=== PATIENT | male | born 1985 | race African-American/Black ===

== ENCOUNTER 2018-03-31 12:13 | Inpatient (IN) ==
[2018-03-31] MEDS ORDERED: KETOROLAC 30 MG/1 ML VIAL IV STA (14:43)
[2018-03-31] MEDS ORDERED: SODIUM CHLORIDE 0.9% 1,000 ML IV STA ×2 (14:43→16:33)
[2018-03-31 15:05] LABS: Basophils # 0.1 10*3/uL (0.0-0.2); Basophils % 0.3 % (0.0-0.8); Eosinophils # 0.1 10*3/uL (0.0-0.87); Eosinophils % 0.3 % (0.00-10.9); Hematocrit 37.1 VOL% (42.0-52.0); Hemoglobin 12.3 GM/DL (14.0-18.0); Immature Granulocytes % 0.7 %; Immature Granulocytes Absolute 0.17 #; Lymphocytes # 1.8 10*3/uL (1.4-4.0); Lymphocytes % 7.9 % (21.2-54.2); Mean Corpuscular HGB Conc 33.2 GM/DL (32-36); Mean Corpuscular Hemoglobin 33 PG (27-34); Mean Corpuscular Volume 99.7 FL (87-102); Mean Platelet Volume 9.3 FL (9.6-12.0); Monocytes # 1.5 10*3/uL (0.11-0.8); Monocytes % 6.6 % (1.7-12.7); Neutrophils # 19.4 10*3/uL (1.4-7.4); Neutrophils % 84.2 % (38.7-73.9); Platelet Count 485 T/CUMM (130-400); Red Blood Count 3.72 MC/CUMM (3.8-5.5); Red Cell Distribution Width 11.9 % (9.3-17.3); White Blood Count 23.1 T/CUMM (4-12)
[2018-03-31] MEDS ORDERED: cefTRIAXone 1,000 MG in SODIUM CHLORIDE 0.9% 100 ML IV STA (15:17)
[2018-03-31 15:22] LABS: Osmolality,Calculated 264.2 MOS/KG (273-304); Potassium 3.7 MMOL/L (3.5-5.1)
[2018-03-31] MEDS ORDERED: ONDANSETRON 4 MG/2 ML VIAL IV STA (15:25)
[2018-03-31] MEDS ORDERED: HYDROmorphone 2 MG/1 ML VIAL IV STA (15:25)
[2018-03-31 15:46] LABS: Band Neutrophils 2 % (0-10); Hypochromasia 1+; Lymphocytes 14 % (20-55); Polychromasia Slight; Segmented Neutrophils 76 % (50-85); Total Cells Counted 100
[2018-03-31 15:47] LABS: Platelet Estimate Adequate; Stomatocytes Few; Target Cells Slight
[2018-03-31] MEDS ORDERED: ACETAMINOPHEN 325 MG TABLET PO PRN (15:50)
[2018-03-31] MEDS ORDERED: ONDANSETRON 4 MG/2 ML VIAL IV PRN (15:50)
[2018-03-31] MEDS ORDERED: PROMETHAZINE 25 MG/1 ML VIAL IM PRN (15:50)
[2018-03-31] MEDS ORDERED: LEVOFLOXACIN INJ 750 MG in PREMIX 1 EACH IV STA (16:09)
[2018-03-31] MEDS ORDERED: HYDROmorphone 2 MG/1 ML VIAL IV PRN (16:10)
[2018-03-31] MEDS ORDERED: SODIUM CHLORIDE 0.9% 1,500 ML IV STA (16:35)
[2018-03-31] MEDS ORDERED: LEVOFLOXACIN INJ 750 MG in PREMIX 1 EACH IV SCH (17:00)
[2018-03-31 17:01] LABS: Apearance,Urine CLOUDY (Clear); Bilirubin,Urine Negative (Negative); Blood, Urine Small mg/dL (Negative); Glucose,Urine (UA) Negative (Negative); Ketones,Urine 80 mg/dL (Negative); Mucus,Urine Occasional /LPF (Occasional); Nitrite,Urine Negative (Negative); Protein,Urine 30 MG/DL; RBC,Urine 8 /HPF (0-4); Urine Color Amber (Yellow); Urine Specific Gravity 1.017 (1.001-1.035); WBC,Urine 1581 /HPF (0-6)
[2018-03-31] MEDS ORDERED: INFLUENZA VIRUS VACCINE 0.5 ML SYRINGE IM ONE (18:17)
[2018-03-31] MEDS: cefTRIAXone 1,000 MG in SYRINGE 1 EACH IV SCH (18:24)
[2018-03-31] MEDS: ENOXAPARIN 40 MG/0.4 ML SYRINGE SUBCUT SCH (18:36)
[2018-03-31] MEDS: PANTOPRAZOLE 40 MG TABLET PO SCH (18:36)
[2018-03-31] MEDS: SODIUM CHLORIDE 0.9% 1,000 ML IV SCH (18:37)
[2018-03-31 19:09] LABS: Barbiturates Screen,Urine Negative (Negative); Benzodiazepines Screen,Urine Negative (Negative); Cannabinoid Screen,Urine Positive (Negative); Opiate Screen,Urine Negative (Negative); Phencyclidine Screen,Urine Negative (Negative)
[2018-04-01] MEDS: SODIUM CHLORIDE 0.9% 1,000 ML IV SCH ×2 (02:06→09:53)
[2018-04-01 06:19] LABS: Basophils % 0.2 % (0.0-0.8); Eosinophils # 0.2 10*3/uL (0.0-0.87); Eosinophils % 0.8 % (0.00-10.9); Hematocrit 29.9 VOL% (42.0-52.0); Hemoglobin 9.9 GM/DL (14.0-18.0); Immature Granulocytes % 0.8 %; Immature Granulocytes Absolute 0.14 #; Lymphocytes # 2.3 10*3/uL (1.4-4.0); Lymphocytes % 13.2 % (21.2-54.2); Mean Corpuscular HGB Conc 33.1 GM/DL (32-36); Mean Corpuscular Hemoglobin 34 PG (27-34); Mean Corpuscular Volume 101.4 FL (87-102); Mean Platelet Volume 9.4 FL (9.6-12.0); Monocytes # 1.6 10*3/uL (0.11-0.8); Monocytes % 9.1 % (1.7-12.7); Neutrophils # 13.4 10*3/uL (1.4-7.4); Neutrophils % 75.9 % (38.7-73.9); Platelet Count 422 T/CUMM (130-400); Red Blood Count 2.95 MC/CUMM (3.8-5.5); White Blood Count 17.7 T/CUMM (4-12)
[2018-04-01 06:54] LABS: Bilirubin,Total 0.6 MG/DL (0.2-1.0); Osmolality,Calculated 273.7 MOS/KG (273-304); Total Protein 6.2 G/DL (6.4-8.3)
[2018-04-01 09:13] LABS: Folate 6.9 NG/ML (5.4-24.0)
[2018-04-01] MEDS: PANTOPRAZOLE 40 MG TABLET PO SCH (09:47)
[2018-04-01] MEDS: LEVOFLOXACIN INJ 750 MG in PREMIX 1 EACH IV SCH (16:04)
[2018-04-01] MEDS ORDERED: CYANOCOBALAMIN 1000 MCG/1 ML VIAL IM ONE (16:30)
[2018-04-01] MEDS: cefTRIAXone 1,000 MG in SYRINGE 1 EACH IV SCH (17:59)
[2018-04-01] MEDS: ENOXAPARIN 40 MG/0.4 ML SYRINGE SUBCUT SCH (18:00)
[2018-04-01] MEDS: MULTIVITAMIN (CENTRUM) TABLET PO SCH (18:03)
[2018-04-01] MEDS ORDERED: FOLIC ACID 1 MG TABLET PO SCH (21:00)
[2018-04-01] MEDS ORDERED: SERTRALINE 25 MG TABLET PO SCH (21:00)
[2018-04-02 06:53] LABS: Basophils % 0.2 % (0.0-0.8); Eosinophils # 0.2 10*3/uL (0.0-0.87); Eosinophils % 1.6 % (0.00-10.9); Hematocrit 29.6 VOL% (42.0-52.0); Hemoglobin 9.7 GM/DL (14.0-18.0); Immature Granulocytes % 0.8 %; Immature Granulocytes Absolute 0.11 #; Lymphocytes # 2.2 10*3/uL (1.4-4.0); Lymphocytes % 16.7 % (21.2-54.2); Mean Corpuscular HGB Conc 32.8 GM/DL (32-36); Mean Corpuscular Hemoglobin 33 PG (27-34); Mean Corpuscular Volume 100.3 FL (87-102); Mean Platelet Volume 9.7 FL (9.6-12.0); Monocytes # 1.2 10*3/uL (0.11-0.8); Monocytes % 9.3 % (1.7-12.7); Neutrophils # 9.3 10*3/uL (1.4-7.4); Neutrophils % 71.4 % (38.7-73.9); Platelet Count 444 T/CUMM (130-400); Red Blood Count 2.95 MC/CUMM (3.8-5.5); Red Cell Distribution Width 12.1 % (9.3-17.3)
[2018-04-02] MEDS: cefTRIAXone 1,000 MG in SYRINGE 1 EACH IV SCH (10:13)
[2018-04-02] MEDS: LEVOFLOXACIN INJ 750 MG in PREMIX 1 EACH IV SCH (10:19)
[2018-04-02] MEDS: PANTOPRAZOLE 40 MG TABLET PO SCH (10:20)
[2018-04-02] MEDS: MULTIVITAMIN (CENTRUM) TABLET PO SCH (10:20)
[2018-04-02 15:38] VITALS: BP 132/77
== END 2018-04-02 14:05 | disposition home or self-care (01) | DRG 728 ==
LOC: N.ED 12:13 → N.EDINP 15:35 → N.5E 15:40
PROVIDERS: ADMIT Family Medicine; ATTEND Family Medicine